=== PATIENT | female | born 1985 | race Caucasian/White ===

== ENCOUNTER → 2023-10-15 09:31 | Outpatient (CLI) | payer OTHER, SELFPAY ==
[2023-10-15 10:31] LABS: Prolactin 15.1 ng/mL (3.0-18.6)
[2023-10-15 10:32] LABS: Follicle Stimulating Hormone 6.97 mIU/mL; Luteinizing Hormone 4.45 mIU/mL
[2023-10-15 10:47] LABS: Thyroid Stimulating Hormone 1.34 uIU/mL (0.47-4.68)
[2023-10-15 13:41] LABS: Urine N gonorrhoeae NOT DETECTED
[2023-10-15 14:11] LABS: Urine Chlamydia NOT DETECTED
== END ==
PROVIDERS: Referring Provider Advanced Practice Midwife; Visit Provider Advanced Practice Midwife
DX: Z11.3 Encounter for screening for infections with a predominantly sexual mode of transmission (principal); Z13.29 Encounter for screening for other suspected endocrine disorder; N97.9 Female infertility, unspecified
CPT/HCPCS: 36415; 83001; 83002; 84146; 84443; 87491; 87591

== ENCOUNTER → 2024-07-23 11:08 | Outpatient (CLI) | payer OTHER, SELFPAY ==
[2024-07-23 13:05] LABS: HCG Quantitative /Beta subunit 32.88 mIU/mL
== END ==
LOC: LAB 11:10
PROVIDERS: Referring Provider Obstetrics & Gynecology Reproductive Endocrinology; Visit Provider Obstetrics & Gynecology Reproductive Endocrinology
DX: Z32.01 Encounter for pregnancy test, result positive (principal)
CPT/HCPCS: 36415; 84702

== ENCOUNTER → 2024-07-25 12:15 | Outpatient (CLI) | payer OTHER, SELFPAY ==
[2024-07-25 15:26] LABS: HCG Quantitative /Beta subunit 85.79 mIU/mL
== END ==
PROVIDERS: Referring Provider Obstetrics & Gynecology Reproductive Endocrinology; Visit Provider Obstetrics & Gynecology Reproductive Endocrinology
DX: Z32.00 Encounter for pregnancy test, result unknown (principal)
CPT/HCPCS: 36415; 84702